=== PATIENT | female | born 1970 | race Two or more races ===

== ENCOUNTER 2016-03-25 07:53 | Emergency (ER) | payer OTHER ==
[2016-03-25] MEDS ORDERED: AZITHROMYCIN 250 MG TAB PO ONE (08:17)
[2016-03-25 08:19] VITALS: BP 100/79; PULSE 60; RESP 18; TEMP 97.8; O2SAT 96
--- NOTE | 2016-03-25 08:20 | UCPHY ---
H & P Patient Type: New Time Seen by Provider: 03/25/16 08:12 HPI/ROS: CHIEF COMPLAINT: Cough, congestion, fevers HISTORY OF PRESENT ILLNESS: The patient is a 45-year-old female who comes to the Urgent Care complaining of a cough and congestion and intermittent fevers as well as a runny nose. Symptoms began 6 days ago. She denies chest pain or abdominal pain. No GI symptoms. No symptoms. She classifies her symptoms as moderate. She does not have any history of wheezing or COPD. REVIEW OF SYSTEMS: Constitutional: denies: chills, fever, recent illness, recent injury EENTM: denies: blurred vision, double vision, nose congestion Respiratory: See HPI Cardiac: denies: chest pain, irregular heart rate, lightheadedness, palpitations Gastrointestinal/Abdominal: denies: abdominal pain, diarrhea, nausea, vomiting, blood streaked stools Genitourinary: denies: dysuria, frequency, hematuria, pain Musculoskeletal: denies: joint pain, muscle pain Skin: denies: lesions, rash, jaundice, bruising Neurological: denies: headache, numbness, paresthesia, tingling, dizziness, weakness Hematologic/Lymphatic: denies: blood clots, easy bleeding, easy bruising Immunologic/allergic: denies: HIV/AIDS, transplant EXAM: GENERAL: Well-appearing, well-nourished and in no acute distress. HEAD: Atraumatic, normocephalic. EYES: Pupils equal round and reactive to light, extraocular movements intact, sclera anicteric, conjunctiva are normal. ENT: TMs normal, nares patent, oropharynx clear without exudates. Moist mucous membranes. NECK: Normal range of motion, supple without lymphadenopathy or JVD. LUNGS: Rhonchi bilateral bases, no wheezing HEART: Regular rate and rhythm without murmurs, rubs or gallops. ABDOMEN: Soft, nontender, normoactive bowel sounds. No guarding, no rebound. No masses appreciated. BACK: No CVA tenderness, no spinal tenderness, step-offs or deformities EXTREMITIES: Normal range of motion, no pitting or edema. No clubbing or cyanosis. NEUROLOGICAL: Cranial nerves II through XII grossly intact. Normal speech, normal gait. 5/5 strength, normal movement in all extremities, normal sensation PSYCH: Normal mood, normal affect. SKIN: Warm, dry, normal turgor, no visible rashes or lesions. Source: Patient Exam Limitations: No limitations - Medical/Surgical History Hx Asthma: No Hx Chronic Respiratory Disease: No Hx Diabetes: No Hx Cardiac Disease: No Hx Renal Disease: No Hx Cirrhosis: No Hx Alcoholism: No - Family History Significant Family History: Hypertension - Social History Smoking Status: Never smoked Alcohol Use: Sober Drug Use: None Constitutional: Initial Vital Signs Temperature (C) 36.6 C 03/25/16 08:10 Heart Rate 60 03/25/16 08:10 Respiratory Rate 18 03/25/16 08:10 Blood Pressure 100/79 03/25/16 08:10 O2 Sat (%) 96 03/25/16 08:10 O2 Delivery Mode Room Air Allergies/Adverse Reactions: No Known Allergies Allergy (Unverified 03/25/16 08:38) Home Medications: Medication Instructions Recorded AZITHROMYCIN [Z-PACK] 250 mg PO DAILY #4 tab 03/25/16 Promethazine HCl/Codeine 5 ml PO Q4-6PRN PRN #90 ml 03/25/16 [Prometh-Codein 6.25-10 mg/5 ml] Medical Decision Making - Diagnostics Imaging: X-ray: chest x-ray was obtained. I viewed the images myself on the PACS system. My interpretation of the images is: Consistent with bronchitis. The radiologist interpretation is pending. ED Course/Re-evaluation: We discussed the patient's x-rays. She is reassured. Her vital signs remained stable. She denies chest pain. I will treat her with azithromycin and albuterol for cough as well as cough syrup for nighttime. She is happy with this plan and declines further workup or testing at this time. We discussed indications for returning. Differential Diagnosis: Partial list of the Differential diagnosis considered include but were not limited to; cough, bronchitis, pneumonia, upper respiratory tract infection, sinusitis, pharyngitis and although unlikely based on the history and physical exam, I also considered PE, acute coronary disease, dissection. I discussed these differential diagnoses and the plan with the patient as well as the usual and expected course. The patient understands that the diagnosis is provisional and that in medicine we are not always correct and that further workup is often warranted. Usual and customary warnings were given. All of the patient's questions were answered. The patient was instructed to return to the emergency department should the symptoms at all worsen or return, otherwise to followup with the physician as we discussed. - Data Points Medications Given: Discontinued Medications Albuterol Sulfate (Proventil Inh Prepack) 1 mdi TAKEHOME EDNOW ONE Stop: 03/25/16 08:37 Last Admin: 03/25/16 08:45 Dose: 1 mdi Azithromycin (Zithromax) 500 mg PO EDNOW ONE PRN Reason: Protocol Stop: 03/25/16 08:18 Last Admin: 03/25/16 09:00 Dose: 500 mg Departure - Departure Disposition: Home, Routine, Self-Care Clinical Impression: Bronchitis Condition: Fair Instructions: Acute Bronchitis (ED) Referrals: [facility],. [Primary Care Provider] - As per Instructions Prescriptions: Promethazine HCl/Codeine [Prometh-Codein 6.25-10 mg/5 ml] 5 ml PO Q4-6PRN PRN # 90 ml PRN Reason: Cough, Moderate AZITHROMYCIN [Z-PACK] 250 mg PO DAILY #4 tab - PQRS PQRS Measurement: Not applicable
[2016-03-25] MEDS ORDERED: ALBUTEROL INH PREPACK MDI TAKEHOME ONE (08:36)
--- NOTE | 2016-03-25 08:55 | DX ---
PA and Lateral Chest X-Ray 0 821 hours History: Cough with chest discomfort and dyspnea. Findings: Heart size and pulmonary vasculature are normal. There is mild peribronchial cuffing seen in the perihilar region and prominence of perihilar interstitial markings. There are no peripheral i nfiltrates or effusions. Osseous structures are intact. Impression: Mild prominence of perihilar interstitial markings and peribronchial cuffing. Findings ar e nonspecific but can be seen with mild bronchitis, reactive airway disease, or viral process.
== END 2016-03-25 09:03 | disposition home or self-care (01) ==
LOC: CED 07:53
DX: J40 Bronchitis, not specified as acute or chronic (principal)
CPT/HCPCS: 71020-PO; 99204-PO; G0463-PO

== ENCOUNTER → 2016-09-17 | Outpatient (CLI) | payer OTHER | LOC: FIMAGING 15:32 | PROVIDERS: ATTEND Family Medicine | DX: Z12.31 Encounter for screening mammogram for malignant neoplasm of breast (principal) | CPT/HCPCS: G0202 ==

== ENCOUNTER 2016-12-07 07:28 | Emergency (ER) | payer OTHER ==
[2016-12-07 07:39] VITALS: BP 102/70; PULSE 78; RESP 16; TEMP 98.2; O2SAT 95
--- NOTE | 2016-12-07 07:54 | EDPHY ---
H & P Time Seen by Provider: 12/07/16 07:32 HPI/ROS: CHIEF COMPLAINT: Cough History by patient HISTORY OF PRESENT ILLNESS: 46-year-old otherwise healthy woman presents complaining of 2 days of persistent dry cough and runny nose. There has been no headache or fever or body aches. She has had emesis x2 but no diarrhea. The cough is sometimes painful. She denies any abdominal pain. She does not smoke. There is no known ill contacts. She works [employer] at [employer]. REVIEW OF SYSTEMS: As in HPI, and all other systems reviewed and are negative Smoking Status: Never smoked Physical Exam: General Appearance: Alert and no distress. Head: normocephalic, atraumatic, no sinus tenderness Eyes: Pupils equal and round no injection. Ears: TM clear bilat OP: mucus membranes moist, no tonsillar enlargement, no exudates Neck: no meningismus, bilateral nontender cervical nodes, no submandibular nodes Respiratory: Chest is nontender, lungs are clear to auscultation. Positive wheeze on forced expiration and cough Cardiac: regular rate and rhythm. Gastrointestinal: Abdomen is soft and nontender, no masses, bowel sounds normal. Musculoskeletal: Neck is supple and nontender. Extremities have full range of motion and are nontender. Skin: No rashes or lesions. Constitutional: Initial Vital Signs Temperature (C) 36.8 C 12/07/16 07:30 Heart Rate 78 12/07/16 07:30 Respiratory Rate 16 12/07/16 07:30 Blood Pressure 102/70 12/07/16 07:30 O2 Sat (%) 95 12/07/16 07:30 O2 Delivery Mode Room Air Allergies/Adverse Reactions: No Known Allergies Allergy (Verified 12/07/16 07:38) Home Medications: Medication Instructions Recorded Albuterol [Proventil Inhaler HFA 1 - 2 puffs IH Q4H #1 mdi 12/07/16 (*)] MDM/Departure - MDM ED Course/Re-evaluation: 46-year-old woman presents with URI symptoms and wheezy cough. There is no evidence of hypoxia or respiratory distress or acute systemic toxicity. There is no evidence of pneumonia. We will treat patient symptomatically. She is given a work excuse at her request - Depart Disposition: Home, Routine, Self-Care Clinical Impression: Upper respiratory infection, acute Condition: Good Instructions: Upper Respiratory Infection (ED) Additional Instructions: You were seen by Dr. Rossy Peters. Use inhaler when coughing and before you go to bed at night for cough. Use a humidifier in the room where you sleep. Try hot drinks with honey. Take ibuprofen 400-600mg 4 times daily and Tylenol 500-1000mg every 6 hours as needed for fever and/or pain. Return for any worsening or new concerns. Stand Alone Forms: Work Excuse Prescriptions: Albuterol [Proventil Inhaler HFA (*)] 1 - 2 puffs IH Q4H #1 mdi Referrals: NONE *PRIMARY CARE P,. [Primary Care Provider] - As per Instructions
== END 2016-12-07 08:00 | disposition home or self-care (01) ==
LOC: CED 07:28
DX: J06.9 Acute upper respiratory infection, unspecified (principal)

== ENCOUNTER → 2017-10-25 | Outpatient (CLI) | payer OTHER | LOC: FIMAGING 11:46 | PROVIDERS: ATTEND Family Medicine | DX: Z12.31 Encounter for screening mammogram for malignant neoplasm of breast (principal) ==